=== PATIENT | male | born 1950 | race Caucasian/White ===

== ENCOUNTER 2019-04-27 09:55 | Outpatient (CLI) | payer OTHER, MEDICARE, SELFPAY ==
[2019-04-27 12:47] LABS: Calculated LDL 114 mg/dL; Cholesterol 176 mg/dL (50-200); Glucose 110 mg/dL (70-100); HDL Cholesterol 54 mg/dL (40-60); Triglyceride 44 mg/dL (30-150)
== END 2019-04-27 10:15 ==
PROVIDERS: PCP Family Medicine; Visit Provider Family Medicine
DX: Z00.00 Encounter for general adult medical examination without abnormal findings (principal); Z13.220 Encounter for screening for lipoid disorders; Z13.1 Encounter for screening for diabetes mellitus
CPT/HCPCS: 36415; 80061; 82947; 83721

== ENCOUNTER 2025-01-24 03:30 | Outpatient (CLI) | payer MEDICARE, SELFPAY ==
[2025-01-24 10:02] LABS: Hemoglobin A1C 5.8 % (<5.7)
[2025-01-25 10:04] LABS: Hepatitis C Ab w Rflx HCV PCR Negative (Negative)
== END 2025-01-24 03:31 | disposition home or self-care (01) ==
LOC: LBO 03:30
PROVIDERS: PCP Family Medicine; Visit Provider Family Medicine
DX: Z11.59 Encounter for screening for other viral diseases (principal); E11.9 Type 2 diabetes mellitus without complications
CPT/HCPCS: 36415; 86803; 83036

== ENCOUNTER 2025-07-26 03:31 | Outpatient (CLI) | payer MEDICARE, SELFPAY ==
[2025-07-26 12:38] LABS: ALT 19 U/L (16-63); AST 16 U/L (15-37); Albumin 3.8 g/dL (3.4-5.0); Alkaline Phosphatase 143 U/L (46-116); Anion Gap 6.1 mmol/L (3-11); BUN 15 mg/dL (7-18); Bilirubin, Total 0.6 mg/dL (0.2-1.0); CO2 30.9 mmol/L (21.0-32.0); Calcium 9.3 mg/dL (8.5-10.1); Calculated LDL 104 mg/dL (<100); Chloride 101 mmol/L (98-107); Cholesterol 167 mg/dL (<200); Estimated GFR 78.98 (mL/min/1.73m2); Glucose 115 mg/dL (74-106); HDL Cholesterol 53 mg/dL (>or=40); Potassium 4.3 mmol/L (3.5-5.1); Sodium 138 mmol/L (136-145); Total Protein 8.5 g/dL (6.4-8.2); Triglyceride 53 mg/dL (<150)
[2025-07-26 23:59] LABS: PSA, Diagnostic 6.8 ng/mL (<=6.5)
[2025-07-27 10:02] LABS: HBs Antibody, Quant <3.1 mIU/mL (See Note); Hepatitis B Surface Antigen Negative (Negative)
[2025-07-27 10:18] LABS: HIV-1/2 Ag & Ab Screen Negative (Negative)
== END 2025-07-26 03:32 | disposition home or self-care (01) ==
LOC: LBO 03:31
PROVIDERS: PCP Nurse Practitioner Family; Visit Provider Nurse Practitioner Family
DX: E78.5 Hyperlipidemia, unspecified (principal); R35.1 Nocturia; Z11.4 Encounter for screening for human immunodeficiency virus [HIV]; Z11.59 Encounter for screening for other viral diseases
CPT/HCPCS: 36415; 80053; 80061; 86704; 86706; 87340; 87389; 84153

== ENCOUNTER 2025-08-13 19:19 | Inpatient (IN) | payer MEDICARE, SELFPAY ==
[2025-08-13] VITALS (94 sets, daily range): BP systolic 152–165; BP diastolic 80–99; PULSE 59–85; RESP 7–24; TEMP 36.6–37; O2SAT 93–100
--- NOTE | 2025-08-13 19:45 | DI.CT_ITS ---
Exam(s) CT ABDOMEN PELVIS W EXAM: CT ABDOMEN PELVIS W CLINICAL HISTORY: epigastric pain. TECHNIQUE: Imaging Protocol: Axial computed tomography images with coronal and sagittal reformatted images were created and reviewed CONTRAST MATERIAL: Intravenous: Omnipaque-350 75cc Oral: None COMPARISON: No exams were available for comparison FINDINGS: VISUALIZED LUNG BASES: No nodules nor pleural effusions evident. ABDOMEN: There is no ascites. LIVER: There are no focal hepatic lesions evident. No dilated intrahepatic ducts. GALLBLADDER/BILIARY: There is a peripherally calcified large gallstone in the gallbladder lumen which exhibits diameter of 1 point 9 cm. Gallbladder wall does not appear obvious edematous. There is no pericholecystic fluid. CBD is not dilated. PANCREAS: There is abnormal stranding in the fat around the pancreas, most prominent in the pancreatic body and tail consistent with acute pancreatitis. Pancreatic duct is dilated in the body and tail part of the neck. There few parenchymal calcifications in the head of the pancreas. There is no obvious distinct hypodense mass the pancreatic head but there is cystic finding in the pancreatic body measuring 1.7 by 1.2 cm. SPLEEN: Spleen is not enlarged. No obvious intrasplenic lesions. Splenic and portal veins are patent. ADRENALS: There are no significant adrenal masses. KIDNEYS:There are small cortical cysts as well as parapelvic cysts in left kidney. No solid renal masses. There are no renal calculi. No hydronephrosis. No hydroureter. No obvious abnormality in the urinary bladder. ABDOMINAL AORTA: Abdominal aorta is not enlarged. Retroaortic left renal vein incidentally noted. LYMPH NODES:There is no retroperitoneal nor paraaortic adenopathy. ABDOMINAL WALL: Fat only containing midline umbilical hernia. No significant inguinal hernias. GI: There is no evidence of bowel obstruction, free air, nor abscess. PELVIS: GI: No evidence of appendicitis.There diverticuli in the sigmoid but no evidence of acute diverticulitis. LYMPH NODES: There is no intrapelvic nor inguinal adenopathy. REPRODUCTIVE: Mildly enlarged prostate. Seminal vesicles unremarkable. URINARY BLADDER: No calculi nor obvious masses evident OSSEOUS: No fractures and no significant osseous lesions. Moderate disc space narrowing at L5-S1 level. No listhesis. No pars defects. IMPRESSION: 1. There is inflammatory streaking on the pancreas consistent with acute pancreatitis, this most prominent around the body and tail of the pancreas. The pancreatic duct is dilated. 2. There is a 17 x 12 mm cystic structure in the body of the pancreas.. This is either a pancreatic cyst versus pancreatic pseudocyst versus cystic pancreatic neoplasm. Appropriate follow-up with MRI recommended. 3. Cholelithiasis. Large gallstone in the gallbladder. No evidence of obvious acute cholecystitis. The CBD is not dilated. 4. Other findings as above Preliminary [facility] report was reviewed. RADIATION DOSE DELIVERED: 462.49mGy.cm Total DLP DATA REPOSITORY: All CT scans at this facility are submitted to the National Radiology Data Registry (NRDR) Dose Index Registry (DIR) with the [employer] (A[employer]). RADIATION OPTIMIZATION: All CT scans at this facility use at least one of these dose optimization techniques: automated exposure control; mA and/or kV adjustment per patient size (includes targeted exams where dose is matched to clinical indication); or iterative reconstruction.
--- NOTE | 2025-08-13 19:45 | RT.EKG_ITS ---
APPROVED REPORT Exam: Resting ECG Reason for Exam: chest pain Patient Location: E HR:78 bpm ECG Measurements Heart Rate 78 AXIS GA 170 P 37 QRSd 96 QRS 23 QT 379 T -3 QTc 430 Conclusion Sinus rhythm, rate 78 No interval abnormalities No STEMI No priors available for comparison
[2025-08-13] MEDS: ACETAMINOPHEN 500 MG/50 ML BAG 200 MG IVPB (20:23)
[2025-08-13 20:28] LABS: Abs Immature Grans 0.03 10^3/uL (0.0-0.06); HCT 41.2 % (40.0-50.0); HGB 13.9 g/dL (13.5-17.5); Immature Grans % 0.3 %; MCH 29.7 pg (27.0-33.0); MCHC 33.7 % (32.0-36.0); MCV 88 fL (80-95); MPV 9.0 fL (8.0-11.0); Platelet Count 235 10^3/uL (130-400); RBC 4.68 10^6/uL (4.36-5.78); RDW 13.2 % (11.8-14.1); RDW-SD 43.1 fL; WBC 9.84 10^3/uL (4.4-10.8)
[2025-08-13] MEDS: Normal Saline - Diluent 50 ML VIAL IJ (20:30)
[2025-08-13] MEDS: Normal Saline Flush 10 ML SYR IVP (20:30)
[2025-08-13] MEDS: Omnipaque 350 MG/ML 100 ML BTL IJ (20:30)
[2025-08-13 20:49] LABS: ALT 19 U/L (16-63); AST 15 U/L (15-37); Albumin 3.2 g/dL (3.4-5.0); Alkaline Phosphatase 124 U/L (46-116); Anion Gap 8.6 mmol/L (3-11); BUN 13 mg/dL (7-18); Bilirubin, Total 0.4 mg/dL (0.2-1.0); CO2 28.4 mmol/L (21.0-32.0); Calcium 8.4 mg/dL (8.5-10.1); Chloride 103 mmol/L (98-107); Glucose 125 mg/dL (74-106); Potassium 3.8 mmol/L (3.5-5.1); Sodium 140 mmol/L (136-145); Total Protein 7.5 g/dL (6.4-8.2); Troponin I 31 ng/L (<or=76)
[2025-08-13 21:04] LABS: Lipase 987 U/L (<78)
--- NOTE | 2025-08-13 21:21 | DI.VRAD_ITS ---
PROCEDURE INFORMATION: Exam: CT Abdomen And Pelvis With Contrast Exam date and time: 08/13/2025 8:45 PM Age: 75 years old Clinical indication: Abdominal pain; Localized; Epigastric pain TECHNIQUE: Imaging protocol: Computed tomography of the abdomen and pelvis with contrast. Radiation optimization: All CT scans at this facility use at least one of these dose optimization techniques: automated exposure control; mA and/or kV adjustment per patient size (includes targeted exams where dose is matched to clinical indication); or iterative reconstruction. Contrast material: OMNIPAQUE 350; Contrast volume: 75 ml; Contrast route: INTRAVENOUS (IV); COMPARISON: No relevant prior studies available. FINDINGS: Liver: Normal. No mass. Gallbladder and biliary ducts: Gallstone in the gallbladder Pancreas: Mild inflammatory changes around the pancreas consistent with mild pancreatitis especially seen around the body and tail of the pancreas Dilatation of the pancreatic duct 18 x 14 mm cystic structure in the body of the pancreas (series 8, image 34.). Spleen: Normal. No splenomegaly. Adrenal glands: Normal. No mass. Kidneys and ureters: There is no evidence of renal or ureteral calcifications. Subcentimeter low attenuation areas in both kidneys are too small for characterization. Stomach and bowel: Unremarkable. No obstruction. No mucosal thickening. Appendix: No evidence of appendicitis. Intraperitoneal space: Unremarkable. No free air. No significant fluid collection. Vasculature: Unremarkable. No abdominal aortic aneurysm. Lymph nodes: Unremarkable. No enlarged lymph nodes. Urinary bladder: Unremarkable as visualized. Reproductive: Unremarkable as visualized. Bones/joints: Unremarkable. No acute fracture. Soft tissues: Unremarkable. IMPRESSION: Mild inflammatory changes around the pancreas consistent with mild pancreatitis especially seen around the body and tail of the pancreas 18 x 14 mm cystic structure in the body of the pancreas (series 8, image 34.). Findings consistent with pancreatic cyst, pancreatic pseudocyst, pancreatic cystic neoplasm Dictated and Authenticated by: Pako Pedroza MD. Orderin Magda Potter MD
[2025-08-13] MEDS: Normal Saline 1,000 ML 1000 ML IV (21:28)
[2025-08-13 21:48] LABS: Troponin I 30 ng/L (<or=76)
--- NOTE | 2025-08-13 21:52 | HPE_ITS ---
Date of service: 08/13/25 Time of Service: 21:52 Assessment and Plan Assessment and plan (1) Pancreatitis, acute: Start date: 08/13/25 Status: Acute Assessment and plan: This is a generally healthy 75-year-old gentleman who presents with a more severe sharepoint net developer episode of abdominal pain in his epigastrium that he has been having in the last year. This been occurring intermittently and usually after his larger evening meal and in the sharepoint net developer. He appears to have acute pancreatitis and he also has cholelithiasis which may be the most likely cause of his acute episode. He does not have an obstructing stone at this time. He also had an incidental finding of a large pancreatic cyst which needs further evaluation. [facility] did review the case and imaging and advised nonemergent evaluation with outpatient follow-up if his pancreatitis is improving spontaneously. Most likely this is transient gallstone pancreatitis. Patient is a full code. (2) Pancreatic cyst: Start date: 08/13/25 Status: Acute Assessment and plan: Rather large appears benign. Patient does not have any signs or indications of acute laboratory workup at this. He is not an alcohol drinker. He does have his larger fatty meal in the evening which might be why he has been having symptomatic cholelithiasis over this last year. MRI may be followed up as an outpatient if patient is stabilizing and does not require urgent MRI/MRCP to evaluate this event. He has had no weight loss or chronic pain in this area to indicate a symptomatic pancreatic mass. This does not appear to be the cause of his acute pancreatitis with sudden onset and resolution. (3) Cholelithiasis: Start date: 08/13/25 Status: Acute Assessment and plan: Patient did not know that he had gallstones but his father did have gallstones and had to have a gallbladder removed. Surgery has been consulted to review the patient's case in the morning this could be taken care of as an outpatient. Patient appears to have been symptomatic with gallstones over the last year. This is his worst episode. History of Present Illness History of Present Illness Chief Complaint: Awakened at 3 AM the day of presentation with abdominal pain. Narrative: This is a 75-year-old male patient who is generally healthy who was awakened at 3 AM the day of presentation with abdominal pain. His abdominal discomfort was in his upper abdomen in the epigastric area and nonradiating. He had no significant nausea or vomiting. Pain was severe and unrelenting prompting ED evaluation. He had similar but less severe episodes over the last year intermittently and usually early in the morning. Patient's largest meal is in the evening. He is generally healthy and on minimal medication for his age. ED evaluation did reveal epigastric discomfort but no significant guarding or rebound and CT of the abdomen and pelvis was positive for inflammation of the pancreas and a large pancreatic cyst which may not be part of his presentation according to [facility] been consulted by the ED provider. He did also have gallstones but no dilatation of the common bile duct or biliary tree. Lab did reveal an elevated lipase just below 1000, slightly elevated alkaline phosphatase but no other elevation in the liver. At the time I saw the patient he was feeling better and he did not require the morphine IV ordered during the late night and sharepoint net developer. Still had no nausea or vomiting and no radiation of his pain. As stated he had had similar episode but less severe and usually in the sharepoint net developer which he thought was increased gas. Patient will be observed with bowel rest and IV hydration as well as ultrasound the gallbladder in the morning with surgical consultation in place. MRI/MRCP will be performed if lipase/LFTs elevating, but clinically he is improving. Further evaluation of his pancreatic cyst can be done with specialty care as an outpatient. Patient is a full code. Review of Systems Narrative: 13 point review of systems otherwise unrevealing or stable. [facility] All Active Problems (Updated 08/13/25 @ 22:01 by Kurt Esparza) Cholelithiasis (Acute) Pancreatic cyst (Acute) Pancreatitis, acute (Acute) New patient screening performed (Acute) Nocturia (Acute) Hyperlipidemia (Acute) Prediabetes (Acute) Vaccine refused by parent (Acute) Varicose veins of lower extremity (Chronic) stable Chronic ankle pain (Acute 02/15/18) Medical History Exposure to second hand smoke Family History Mother , 89 Essential hypertension Stroke Cancer Father , 94 Heart disease Stroke Sister No problems noted. Sister No problems noted. Maternal Grandfather , 85 Pancreatic cancer Paternal Grandfather , 65 Heart disease Stroke Maternal Grandmother , 98 Stroke Heart disease Paternal Grandmother , 45 Cancer Maternal Uncle Prostate cancer Maternal Uncle Prostate cancer Son No problems noted. Son No problems noted. Social History Smoking/Tobacco Use Status: Former Tobacco Use Second Hand Exposure: Yes Smoking risk assessment performed?: Yes Alcohol Intake: current Alcohol Intake frequency: a few times a month Alcohol type: beer Drug use: Never Substance use type: does not use Counseling given: No Adopted: No Caregiver/Support person: No Foster care: No Household members: spouse Housing: house Communication Needs: None Education Level: college Do you need help understanding health information?: Rarely current occupation: Retired Pets and animals: Yes Pets and animals: cat(s), dog(s), horse(s) and farm animals Sexually active: Yes Do you think of yourself as: straight/heterosexual Current gender identity: male What is your relationship status?: How often do you talk on the phone with friends or family?: three or more times per week How often do you get together with friends or relatives?: three or more times per week How often do you attend congregation or rastafari services?: 1-3 times per year Do you belong to any clubs or organized social groups?: no Panel score (0-1 are the most socially isolated patients): 2 What type of physical activity do you participate in: other Details: Building a house Duration: > 90 minutes/day Frequency: daily Ev/Samaritan: Yarsani Special ev needs: No Agree to transfusion: Yes Seatbelt use: always Drive intox or ride w/intox ambulance driver: No Working smoke detector in home: Yes Carbon monox detector in home: Yes Firearms in home: Yes Firearms unloaded and locked: Yes Do you feel safe at home: Yes Do you feel safe in your relationship?: Yes Meds Allergies and Home Medications Allergies Allergy/AdvReac Type Severity Reaction Status Date / Time codeine AdvReac Intermediate Dizziness/L Verified 08/13/25 19:30 ightheade Home Medications Medication Instructions Recorded Confirmed Type Unknown [No Known Home Meds] 07/21/23 1 10/13/24 History Exam Narrative Exam Narrative: General: Patient appears younger than stated age, alert and oriented x 3 and in no acute distress. HEENT: Normocephalic, long and kempt beltran, alert and oriented x 3 and in no acute distress. Slightly flattened affect. Neck: Supple without JVD. Back: Normal posture without CVA tenderness. Lungs: Clear to auscultation and percussion with no focalizing rales or rhonchi. No expiratory wheeze. Normal aeration with vesicular breath sounds. Heart: Regular rate and rhythm with no murmurs appreciated. Abdomen: Moderately obese, slightly protuberant, soft to palpation with no guarding or rebound but discomfort with deep palpation over the epigastrium. Bowel sounds positive in all quadrants. No palpable hepatosplenomegaly or So sign. Genitalia/rectal: Exam deferred. Extremities: Without clubbing, cyanosis or grossly pitting edema. Skin with chronic changes over legs with loss of hair slight atrophy. Good capillary refill. Skin: Slight skin changes over lower extremity, otherwise normal color, warm and dry. Neuro: Cranial nerves II through XII gross intact, no focalized motor deficits. No tremor. Psych: Normal affect and mood. No abnormal thought processes. Remote and recent memory intact. Results Imaging Imaging Studies: Exam: CT Abdomen And Pelvis With Contrast Exam date and time: 08/13/2025 8:45 PM Age: 75 years old Clinical indication: Abdominal pain; Localized; Epigastric pain COMPARISON: No relevant prior studies available. FINDINGS: Liver: Normal. No mass. Gallbladder and biliary ducts: Gallstone in the gallbladder Pancreas: Mild inflammatory changes around the pancreas consistent with mild pancreatitis especially seen around the body and tail of the pancreas Dilatation of the pancreatic duct 18 x 14 mm cystic structure in the body of the pancreas (series 8, image 34.). Spleen: Normal. No splenomegaly. Adrenal glands: Normal. No mass. Kidneys and ureters: There is no evidence of renal or ureteral calcifications. Subcentimeter low attenuation areas in both kidneys are too small for characterization. Stomach and bowel: Unremarkable. No obstruction. No mucosal thickening. Appendix: No evidence of appendicitis. Intraperitoneal space: Unremarkable. No free air. No significant fluid collection. Vasculature: Unremarkable. No abdominal aortic aneurysm. Lymph nodes: Unremarkable. No enlarged lymph nodes. Urinary bladder: Unremarkable as visualized. Reproductive: Unremarkable as visualized. Bones/joints: Unremarkable. No acute fracture. Soft tissues: Unremarkable. IMPRESSION: Mild inflammatory changes around the pancreas consistent with mild pancreatitis especially seen around the body and tail of the pancreas 18 x 14 mm cystic structure in the body of the pancreas (series 8, image 34.). Findings consistent with pancreatic cyst, pancreatic pseudocyst, pancreatic cystic neoplasm Labs 08/13/25 20:22 08/13/25 20:22 Labs: Laboratory Results - last 24 hr 08/13/25 08/13/25 20:22 21:20 WBC 9.84 RBC 4.68 Hgb 13.9 Hct 41.2 MCV 88 MCH 29.7 MCHC 33.7 RDW 13.2 Plt Count 235 MPV 9.0 Immature Gran % 0.3 Neutrophils % 74.5 Lymphocytes % 14.5 Monocytes % 8.5 Eosinophils % 1.8 Basophils % 0.4 Nucleated RBC % 0.0 Absolute Neutrophils 7.32 H Absolute Lymphocytes 1.43 Absolute Monocytes 0.84 H Absolute Eosinophils 0.18 Absolute Basophils 0.04 VBG Lactate 0.8 Sodium 140 Potassium 3.8 Chloride 103 Carbon Dioxide 28.4 Anion Gap 8.6 BUN 13 Creatinine 1.0 Est GFR (CKD-EPI 2020) 78.98 Glucose 125 H Calcium 8.4 L Total Bilirubin 0.4 AST 15 ALT 19 Alkaline Phosphatase 124 H Troponin I 31 30 Total Protein 7.5 Albumin 3.2 L Lipase 987 H Last Vital Signs Temp 36.9 C 08/13/25 19:31 Pulse 66 08/13/25 21:33 Resp 10 L 08/13/25 21:33 BP 165/99 H 08/13/25 21:30 Pulse Ox 98 08/13/25 21:33 PAWSS Have you Been Recently Intoxicated or Drunk Within the Last 30 days?: No Have you Ever Experienced Previous Episodes of Alcohol Withdrawal?: No Have you ever Experienced Withdrawal Seizures?: No Have you ever Experienced Delirium Tremens(DT)s?: No Have you ever undergone Alcohol Rehabilitation Treatment (i.e, inpt ot outpatient treatment programs)?: No Have you ever Experienced Blackouts?: No Have you ever Combined Alcohol with other Downers within the last 90 days?: No Have you ever Combined Alcohol with any other Substance of Abuse during the last 90 days?: No Positive Blood Alcohol level on Presentation? [PCS.BAL]: No Evidence of Increased Autonomic Activity (i.e. HR>120, tremor, sweating, agitation, nausea)?: No Result: 0 Time Spent Time spent with Patient: >75 minutes Time was spent: preparing to see the patient(eg.review tests), obtaining and/or reviewing separately [facility], ordering medications,tests, procedures, referring, communicating with other health health care sanitary technician, indepentently interpreting results, counseling the patient and care coordination
[2025-08-13] MEDS: MORPHine 4 MG/ML SYR IVP (22:02)
[2025-08-13 22:06] LABS: Glucose Negative (Negative)
--- NOTE | 2025-08-13 22:29 | ED.GENADUL_ITS ---
Discharge Plan Discharge Details Chief Complaint: Abd Prob Primary Care Provider: Bharat Starks ED Provider: Abbey Man Home Meds and New Rx's Prescriptions: No Action No Known Home Meds HPI General Date/Time Provider Initiated Documentation: 08/13/25 19:24 . HPI Narrative: This 75-year-old gentleman presents with epigastric pain which awoke him from sleep at 3 AM. He denies history of similar symptoms in the past. He states the pain radiates through to his back. Denies any chest pain or shortness of breath associated or history of similar symptoms in the past. He consumes alcohol maybe once or twice a month he denies any medication or supplement use. He states the pain feels like an ache and initially thought it was gas but has taken Tums and simethicone without improvement of his symptoms. He states the pain has been persistent since onset. Denies any urinary complaints nausea, vomiting. Related Data Home Medications Medication Instructions Recorded Confirmed Unknown [No Known Home Meds] 07/21/23 1 10/13/24 Allergies Allergy/AdvReac Type Severity Reaction Status Date / Time codeine AdvReac Intermediate Dizziness/L Verified 08/13/25 19:30 ightheade General Stated Complaint: Abd Prob HARLAN: 3 Exam Narrative Exam Narrative: Patient with tenderness in the epigastrium, no rebound or guarding, alert and oriented and answering questions appropriately distal pulses intact all 4 extremities no abdominal bruit or pulsatile mass no CVA tenderness Course Vital Signs Vital signs: Vital Signs Temperature 36.9 C 08/13/25 19:21 Pulse 79 08/13/25 19:21 Respiratory Rate 18 08/13/25 19:21 Blood Pressure 154/80 H 08/13/25 19:21 Pulse Oximetry 96 08/13/25 19:21 Temperature 36.9 C 08/13/25 19:31 Temperature Source Oral 08/13/25 19:31 Pulse 66 08/13/25 21:33 Respiratory Rate 10 L 08/13/25 21:33 Blood Pressure 165/99 H 08/13/25 21:30 Blood Pressure Mean 123 08/13/25 21:30 Blood Pressure Position Sitting 08/13/25 19:31 Pulse Oximetry 98 08/13/25 21:33 Oxygen Delivery Method Room Air 08/13/25 19:31 Oxygen Flow Rate 0 08/13/25 19:21 Pain Level 8 08/13/25 19:21 Lab/Test Results Lab/Test Results: Laboratory Tests Range/Units 08/13/25 08/13/25 08/13/25 20:22 21:20 21:52 WBC (4.4-10.8) 10^3/uL 9.84 RBC (4.36-5.78) 10^6/uL 4.68 Hgb (13.5-17.5) g/dL 13.9 Hct (40.0-50.0) % 41.2 MCV (80-95) fL 88 MCH (27.0-33.0) pg 29.7 MCHC (32.0-36.0) % 33.7 RDW (11.8-14.1) % 13.2 Plt Count (130-400) 10^3/uL 235 MPV (8.0-11.0) fL 9.0 Immature Gran % % 0.3 Neutrophils % % 74.5 Lymphocytes % % 14.5 Monocytes % % 8.5 Eosinophils % % 1.8 Basophils % % 0.4 Nucleated RBC % (0.0-0.3) % 0.0 Absolute Neutrophils (1.2-6.7) 10^3/uL 7.32 H Absolute Lymphocytes (1.2-3.4) 10^3/uL 1.43 Absolute Monocytes (0.1-0.8) 10^3/uL 0.84 H Absolute Eosinophils (0.0-0.7) 10^3/uL 0.18 Absolute Basophils (0.0-0.2) 10^3/uL 0.04 VBG Lactate (<or=2.0) mmol/L 0.8 Sodium (136-145) mmol/L 140 Potassium (3.5-5.1) mmol/L 3.8 Chloride (98-107) mmol/L 103 Carbon Dioxide (21.0-32.0) mmol/L 28.4 Anion Gap (3-11) mmol/L 8.6 BUN (7-18) mg/dL 13 Creatinine (0.70-1.30) mg/dL 1.0 Est GFR (CKD-EPI 2020) (mL/min/1.73m2) 78.98 Glucose (74-106) mg/dL 125 H Calcium (8.5-10.1) mg/dL 8.4 L Total Bilirubin (0.2-1.0) mg/dL 0.4 AST (15-37) U/L 15 ALT (16-63) U/L 19 Alkaline Phosphatase (46-116) U/L 124 H Troponin I (<or=76) ng/L 31 30 Total Protein (6.4-8.2) g/dL 7.5 Albumin (3.4-5.0) g/dL 3.2 L Lipase (<78) U/L 987 H Urine Color (Yellow) Yellow Urine Clarity (Clear) Clear Urine pH (5-8) 7.0 Ur Specific [place] (1.005-1.025) 1.010 Urine Protein (Neg-Trace) mg/dL Negative Urine Ketones (Negative) mg/dL Negative Urine Blood (Negative) Negative Urine Nitrite (Negative) Negative Urine Bilirubin (Negative) Negative Urine Urobilinogen (Up to 0.2) mg/dL 0.2 Ur Leukocyte Esterase (Negative) Negative Urine Glucose (Negative) mg/dL Negative Medical Decision Making Results: Lactate 0.8 CBC within normal limits chemistry reassuring LFTs within normal limits, T. bili within normal limits troponins flat at 30, lipase of 987. CT with pancreatitis and cyst per radiologist interpretation my review Assessment and plan: Patient with epigastric pain with evidence of pancreatitis and cyst on CT. No evidence of obstructive pathology per radiologist interpretation of my review. Suspect acute pancreatitis although no source is idiopathic at this time. Will need additional imaging of cyst. I spoke with the hospitalist Dr. Bosch and he asked that I call gastroenterology for further evaluation. Dr Ceasar Aponte who recommends MRI outpatient or inpatient to further evaluate cyst on pancreas and supportive care. Fluids and morphine are ordered for patient. 2 mg of IV morphine and 1 L of NS. Agreeable to admission at this time. Quality:SDOH Health Related Social Needs: Health related social needs details none PFSH All Active Problems (Updated 08/13/25 @ 22:01 by Kurt Esparza) Cholelithiasis (Acute) Pancreatic cyst (Acute) Pancreatitis, acute (Acute) New patient screening performed (Acute) Nocturia (Acute) Hyperlipidemia (Acute) Prediabetes (Acute) Vaccine refused by parent (Acute) Varicose veins of lower extremity (Chronic) stable Chronic ankle pain (Acute 02/15/18) Medical History Exposure to second hand smoke Family History Mother , 89 Essential hypertension Stroke Cancer Father , 94 Heart disease Stroke Sister No problems noted. Sister No problems noted. Maternal Grandfather , 85 Pancreatic cancer Paternal Grandfather , 65 Heart disease Stroke Maternal Grandmother , 98 Stroke Heart disease Paternal Grandmother , 45 Cancer Maternal Uncle Prostate cancer Maternal Uncle Prostate cancer Son No problems noted. Son No problems noted. Social History Smoking/Tobacco Use Status: Former Tobacco Use Second Hand Exposure: Yes Smoking risk assessment performed?: Yes Alcohol Intake: current Alcohol Intake frequency: a few times a month Alcohol type: beer Drug use: Never Substance use type: does not use Counseling given: No Adopted: No Caregiver/Support person: No Foster care: No Household members: spouse Housing: house Communication Needs: None Education Level: college Do you need help understanding health information?: Rarely current occupation: Retired Pets and animals: Yes Pets and animals: cat(s), dog(s), horse(s) and farm animals Sexually active: Yes Do you think of yourself as: straight/heterosexual Current gender identity: male What is your relationship status?: How often do you talk on the phone with friends or family?: three or more times per week How often do you get together with friends or relatives?: three or more times per week How often do you attend synagogue or mandaeism services?: 1-3 times per year Do you belong to any clubs or organized social groups?: no Panel score (0-1 are the most socially isolated patients): 2 What type of physical activity do you participate in: other Details: Building a house Duration: > 90 minutes/day Frequency: daily Ev/Catholic: Restorationist Special ev needs: No Agree to transfusion: Yes Seatbelt use: always 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 Working smoke detector in home: Yes Carbon monox detector in home: Yes Firearms in home: Yes Firearms unloaded and locked: Yes Do you feel safe at home: Yes Do you feel safe in your relationship?: Yes PAWSS Have you Been Recently Intoxicated or Drunk Within the Last 30 days?: No Have you Ever Experienced Previous Episodes of Alcohol Withdrawal?: No Have you ever Experienced Withdrawal Seizures?: No Have you ever Experienced Delirium Tremens(DT)s?: No Have you ever undergone Alcohol Rehabilitation Treatment (i.e, inpt ot outpatient treatment programs)?: No Have you ever Experienced Blackouts?: No Have you ever Combined Alcohol with other Downers within the last 90 days?: No Have you ever Combined Alcohol with any other Substance of Abuse during the last 90 days?: No Positive Blood Alcohol level on Presentation? [PCS.BAL]: No Evidence of Increased Autonomic Activity (i.e. HR>120, tremor, sweating, agitation, nausea)?: No Result: 0
[2025-08-13 22:57] LABS: COVID-19 PCR Negative (Negative); RSV PCR Negative (Negative)
--- NOTE | 2025-08-13 23:30 | W.PC.ACHO ---
Registration Status: REG ER Primary Language: Preferred Language: Kyrgyz ED Information & Data Chief Complaint Abd Prob 08/13/25 22:31 Triage Note patient has been having 08/13/25 19:21 stomach pain since 3am this morning. State he has been having normal stool. Patient state he feels as if its gas pain and he has been using otc medications all day to help with symptoms but it has not been working. Medical / Surgical History Exposure to second hand smoke Most Recent Vital Signs Temperature 37 C 08/13/25 22:48 Temperature Source Oral 08/13/25 19:31 Pulse 63 08/13/25 22:52 Respiratory Rate 11 L 08/13/25 22:52 Blood Pressure 162/88 H 08/13/25 22:48 Blood Pressure Mean 109 08/13/25 22:28 Blood Pressure Position Sitting 08/13/25 19:31 Pulse Oximetry 98 08/13/25 22:52 Oxygen Delivery Method Room Air 08/13/25 19:31 Oxygen Flow Rate 0 08/13/25 19:21 Pain Level 0 08/13/25 22:48 Allergies codeine Adverse Reaction (Intermediate, Verified 08/13/25 19:30) Dizziness/Lightheade Active Medications Generic Name Dose Route Start Last Admin Trade Name Freq PRN Reason Stop Dose Admin Iohexol 100 ml 08/13/25 20:00 08/13/25 20:30 Omnipaque 350 Mg/Ml 100 Ml Btl IJ 09/12/25 23:59 75 ml DIRECTED BENJY Administration Sodium Chloride 50 ml 08/13/25 20:00 08/13/25 20:30 Normal Saline - Diluent 50 Ml Vial IJ 50 ml DIRECTED BENJY Administration Sodium Chloride 0 ml 08/13/25 20:00 08/13/25 20:30 Normal Saline Flush 10 Ml Syr IVP 10 ml PRN PRN Administration IV IV Catheter Type [Right Saline Lock Antecubital] IV Catheter Gauge [Right 18 Antecubital] Diagnostics 08/13/25 08/13/25 08/13/25 Range/Units 22:15 21:52 21:20 WBC (4.4-10.8) 10^3/uL RBC (4.36-5.78) 10^6/uL Hgb (13.5-17.5) g/dL Hct (40.0-50.0) % MCV (80-95) fL MCH (27.0-33.0) pg MCHC (32.0-36.0) % RDW (11.8-14.1) % Plt Count (130-400) 10^3/uL MPV (8.0-11.0) fL Immature Gran % % Neutrophils % % Lymphocytes % % Monocytes % % Eosinophils % % Basophils % % Nucleated RBC % (0.0-0.3) % Absolute Neutrophils (1.2-6.7) 10^3/uL Absolute Lymphocytes (1.2-3.4) 10^3/uL Absolute Monocytes (0.1-0.8) 10^3/uL Absolute Eosinophils (0.0-0.7) 10^3/uL Absolute Basophils (0.0-0.2) 10^3/uL VBG Lactate (<or=2.0) mmol/L Sodium (136-145) mmol/L Potassium (3.5-5.1) mmol/L Chloride (98-107) mmol/L Carbon Dioxide (21.0-32.0) mmol/L Anion Gap (3-11) mmol/L BUN (7-18) mg/dL Creatinine (0.70-1.30) mg/dL Est GFR (CKD-EPI 2020) (mL/min/1.73m2) Glucose (74-106) mg/dL Calcium (8.5-10.1) mg/dL Total Bilirubin (0.2-1.0) mg/dL AST (15-37) U/L ALT (16-63) U/L Alkaline Phosphatase (46-116) U/L Troponin I 30 (<or=76) ng/L Total Protein (6.4-8.2) g/dL Albumin (3.4-5.0) g/dL Lipase (<78) U/L Urine Color Yellow (Yellow) Urine Clarity Clear (Clear) Urine pH 7.0 (5-8) Ur Specific [place] 1.010 (1.005-1.025) Urine Protein Negative (Neg-Trace) mg/dL Urine Ketones Negative (Negative) mg/dL Urine Blood Negative (Negative) Urine Nitrite Negative (Negative) Urine Bilirubin Negative (Negative) Urine Urobilinogen 0.2 (Up to 0.2) mg/dL Ur Leukocyte Esterase Negative (Negative) Urine Glucose Negative (Negative) mg/dL COVID-19 Source Pending SARS-CoV-2 (PCR) Pending Influenza Type A (PCR) Pending Influenza Type B (PCR) Pending RSV (PCR) Pending 08/13/25 Range/Units 20:22 WBC 9.84 (4.4-10.8) 10^3/uL RBC 4.68 (4.36-5.78) 10^6/uL Hgb 13.9 (13.5-17.5) g/dL Hct 41.2 (40.0-50.0) % MCV 88 (80-95) fL MCH 29.7 (27.0-33.0) pg MCHC 33.7 (32.0-36.0) % RDW 13.2 (11.8-14.1) % Plt Count 235 (130-400) 10^3/uL MPV 9.0 (8.0-11.0) fL Immature Gran % 0.3 % Neutrophils % 74.5 % Lymphocytes % 14.5 % Monocytes % 8.5 % Eosinophils % 1.8 % Basophils % 0.4 % Nucleated RBC % 0.0 (0.0-0.3) % Absolute Neutrophils 7.32 H (1.2-6.7) 10^3/uL Absolute Lymphocytes 1.43 (1.2-3.4) 10^3/uL Absolute Monocytes 0.84 H (0.1-0.8) 10^3/uL Absolute Eosinophils 0.18 (0.0-0.7) 10^3/uL Absolute Basophils 0.04 (0.0-0.2) 10^3/uL VBG Lactate 0.8 (<or=2.0) mmol/L Sodium 140 (136-145) mmol/L Potassium 3.8 (3.5-5.1) mmol/L Chloride 103 (98-107) mmol/L Carbon Dioxide 28.4 (21.0-32.0) mmol/L Anion Gap 8.6 (3-11) mmol/L BUN 13 (7-18) mg/dL Creatinine 1.0 (0.70-1.30) mg/dL Est GFR (CKD-EPI 2020) 78.98 (mL/min/1.73m2) Glucose 125 H (74-106) mg/dL Calcium 8.4 L (8.5-10.1) mg/dL Total Bilirubin 0.4 (0.2-1.0) mg/dL AST 15 (15-37) U/L ALT 19 (16-63) U/L Alkaline Phosphatase 124 H (46-116) U/L Troponin I 31 (<or=76) ng/L Total Protein 7.5 (6.4-8.2) g/dL Albumin 3.2 L (3.4-5.0) g/dL Lipase 987 H (<78) U/L Urine Color (Yellow) Urine Clarity (Clear) Urine pH (5-8) Ur Specific [place] (1.005-1.025) Urine Protein (Neg-Trace) mg/dL Urine Ketones (Negative) mg/dL Urine Blood (Negative) Urine Nitrite (Negative) Urine Bilirubin (Negative) Urine Urobilinogen (Up to 0.2) mg/dL Ur Leukocyte Esterase (Negative) Urine Glucose (Negative) mg/dL COVID-19 Source SARS-CoV-2 (PCR) Influenza Type A (PCR) Influenza Type B (PCR) RSV (PCR) Intake and Output - 24 Hour Total 08/13/25 19:19 thru 08/13/25 22:04 Intake Total 1050 Balance 1050 Weight 83.915 kg Intake: IV 1050 Falls Risk Assessment History of Falls No History 08/13/25 19:56 Contributing Factors No Factors 08/13/25 19:56 Ambulatory Aids Independent 08/13/25 19:56 Tubes/Lines None 08/13/25 19:56 Gait Evaluation No gait disturbance 08/13/25 19:56 Cognition No cognitive impairment 08/13/25 19:56 Fall Total Score 0 08/13/25 19:56 Level of Risk Standard/Low Risk 08/13/25 19:56 Problems (Last Reviewed 08/13/25 @ 21:58 by Kurt Esparza) Cholelithiasis (Acute) Pancreatic cyst (Acute) Pancreatitis, acute (Acute) Attestation Statement: By documenting the first initial, last name, and credentials of the reporting nurse below, both parties acknowledge that all relevant information regarding the patient handoff has been communicated, and that all questions have been addressed to ensure continuity and safety of care. Additional Patient Information/Comments: @ 2300, pt received per ed bed accompanied by haylee CRAWFORD RN,pt nambulated from ed bed to MS bed without device.Denies any sob,dizziness,nv,lightheadedness but with 3/10 mild pain complaint to his upper abdomen.With PIV on his rightarm 18 gauge.Situated pt into comfort.needs attended. Report Received From: HAYLEE CRAWFORDRN @ around [id number]
[2025-08-13] MEDS: Normal Saline 1,000 ML 125 ML IV (23:38)
[2025-08-14 00:18] LABS: INR 1.1 (0.9-1.1); Prothrombin Time 10.6 sec (9.1-11.1)
[2025-08-14 03:20] VITALS: BP 129/76; PULSE 62; RESP 18; TEMP 37.1; O2SAT 98
[2025-08-14] MEDS: Acetaminophen 325 MG TAB 650 MG PO (03:25)
--- NOTE | 2025-08-14 04:12 | SCONE_ITS ---
Date of service: 08/14/25 Time of Service: 04:12 Assessment and Plan Assessment and plan (1) Pancreatitis, acute: Status: Acute Assessment and plan: The history, exam, labs and imaging are all certainly consistent with acute pancreatitis. And the presence of the gallstones seen on the CT scan suggest that as the primary source of the pancreatitis. Although the cystic lesion seen on the CT scan is also suspicious. For now, I would resuscitate with IVF and repeat the liver function tests and lipase. If the LFT remain normal, then retained common bile duct stone is less likely, and we can plan for semi- elective cholecystectomy to reduce the likelihood of recurrent pancreatitis. I generally recommend that patient be pain free from the original pancreatitis with normalizing lipase. If the biochemistries don't improve today then MRCP to rule out ongoing choledocolithiasis would be useful prior to cholecystectomy. History of Present Illness History of Present Illness Chief Complaint: Abdominal pain Narrative: Konrad is 75 years old. He came to the emergency department last night after acute onset of abdominal pain around 3 AM of the same day. It was sharp, stabbing, and radiated from just above his umbilicus down through his back. In retrospect, he may have had a little bit of loss of appetite over the day or 2 preceding this, but otherwise was feeling himself. He denies any nausea vomiting change in his bowel habits. In the emergency department, his lipase was elevated above 900, and he underwent a CT scan of the abdomen and pelvis that was consistent with acute pancreatitis. There was also some evidence of a pancreatic cyst or pseudocyst. He was also found to have cholelithiasis. He has never had any surgery in his abdomen before. He is on no new medications. He has had no significant exposure to alcohol or previous episodes of pancreatitis. Review of Systems Constitutional Constitutional: Denies fever(s) and Reports poor appetite Eyes Eyes: Reports system reviewed and no additional complaints, except as documented ENT Ears, Nose, Mouth, and Throat: Reports system reviewed and no additional complaints, except as documented Cardiovascular Cardiovascular: Denies chest pain and Denies dyspnea Respiratory Respiratory: Denies chest congestion, Denies cough and Denies dyspnea Gastrointestinal Gastrointestinal: Reports abdominal pain, Denies bloating, Denies change in bowel habits, Denies nausea and Denies vomiting Genitourinary Genitourinary: Reports system reviewed and no additional complaints, except as documented Musculoskeletal Musculoskeletal: Reports system reviewed and no additional complaints, except as documented Hematologic/Lymphatic Hematologic/Lymphatic: Denies easy bleeding and Denies easy bruising PFSH All Active Problems (Updated 08/13/25 @ 22:01 by Kurt Esparza) Cholelithiasis (Acute) Pancreatic cyst (Acute) Pancreatitis, acute (Acute) New patient screening performed (Acute) Nocturia (Acute) Hyperlipidemia (Acute) Prediabetes (Acute) Vaccine refused by parent (Acute) Varicose veins of lower extremity (Chronic) stable Chronic ankle pain (Acute 02/15/18) Medical History Exposure to second hand smoke Family History Mother , 89 Essential hypertension Stroke Cancer Father , 94 Heart disease Stroke Sister No problems noted. Sister No problems noted. Maternal Grandfather , 85 Pancreatic cancer Paternal Grandfather , 65 Heart disease Stroke Maternal Grandmother , 98 Stroke Heart disease Paternal Grandmother , 45 Cancer Maternal Uncle Prostate cancer Maternal Uncle Prostate cancer Son No problems noted. Son No problems noted. Social History Smoking/Tobacco Use Status: Former Tobacco Use Second Hand Exposure: Yes Smoking risk assessment performed?: Yes Alcohol Intake: current Alcohol Intake frequency: a few times a month Alcohol type: beer Drug use: Never Substance use type: does not use Counseling given: No Adopted: No Caregiver/Support person: No Foster care: No Household members: spouse Housing: house Communication Needs: None Education Level: college Do you need help understanding health information?: Rarely current occupation: Retired Pets and animals: Yes Pets and animals: cat(s), dog(s), horse(s) and farm animals Sexually active: Yes Do you think of yourself as: straight/heterosexual Current gender identity: male What is your relationship status?: How often do you talk on the phone with friends or family?: three or more times per week How often do you get together with friends or relatives?: three or more times per week How often do you attend caodaism or zoroastrianism services?: 1-3 times per year Do you belong to any clubs or organized social groups?: no Panel score (0-1 are the most socially isolated patients): 2 What type of physical activity do you participate in: other Details: Building a house Duration: > 90 minutes/day Frequency: daily Ev/Orthodox: Yazidi Special ev needs: No Agree to transfusion: Yes Seatbelt use: always 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 Working smoke detector in home: Yes Carbon monox detector in home: Yes Firearms in home: Yes Firearms unloaded and locked: Yes Do you feel safe at home: Yes Do you feel safe in your relationship?: Yes Exam Const General: cooperative, healthy appearing and comfortable Orientation: alert, awake and oriented x3 HENMT Head: normal to inspection Eyes General: appearance normal, both eyes and all related structures Neck Neck: normal visual inspection, full ROM and no lymphadenopathy Resp Effort & Inspection: normal respiratory effort Auscultation: clear to auscultation bilaterally Cardio Rate: regular rate Rhythm: regular rhythm Heart Sounds: S1 normal and S2 normal GI Inspection: normal to inspection and non-distended Palpation: soft, no guarding and nontender Results Last Vital Signs Temp 98.8 F 08/14/25 03:20 Pulse 62 08/14/25 03:20 Resp 18 08/14/25 03:20 BP 129/76 08/14/25 03:20 Pulse Ox 98 08/14/25 03:20 Labs 08/14/25 06:00 08/14/25 06:00 Labs: Laboratory Results - last 24 hr 08/13/25 08/13/25 08/13/25 20:22 21:20 21:52 WBC 9.84 RBC 4.68 Hgb 13.9 Hct 41.2 MCV 88 MCH 29.7 MCHC 33.7 RDW 13.2 Plt Count 235 MPV 9.0 Immature Gran % 0.3 Neutrophils % 74.5 Lymphocytes % 14.5 Monocytes % 8.5 Eosinophils % 1.8 Basophils % 0.4 Nucleated RBC % 0.0 Absolute Neutrophils 7.32 H Absolute Lymphocytes 1.43 Absolute Monocytes 0.84 H Absolute Eosinophils 0.18 Absolute Basophils 0.04 PT INR VBG Lactate 0.8 Sodium 140 Potassium 3.8 Chloride 103 Carbon Dioxide 28.4 Anion Gap 8.6 BUN 13 Creatinine 1.0 Est GFR (CKD-EPI 2020) 78.98 Glucose 125 H Calcium 8.4 L Total Bilirubin 0.4 AST 15 ALT 19 Alkaline Phosphatase 124 H Troponin I 31 30 Total Protein 7.5 Albumin 3.2 L Lipase 987 H Urine Color Yellow Urine Clarity Clear Urine pH 7.0 Ur Specific [place] 1.010 Urine Protein Negative Urine Ketones Negative Urine Blood Negative Urine Nitrite Negative Urine Bilirubin Negative Urine Urobilinogen 0.2 Ur Leukocyte Esterase Negative Urine Glucose Negative COVID-19 Source SARS-CoV-2 (PCR) Influenza Type A (PCR) Influenza Type B (PCR) RSV (PCR) 08/13/25 08/13/25 22:15 23:58 WBC RBC Hgb Hct MCV MCH MCHC RDW Plt Count MPV Immature Gran % Neutrophils % Lymphocytes % Monocytes % Eosinophils % Basophils % Nucleated RBC % Absolute Neutrophils Absolute Lymphocytes Absolute Monocytes Absolute Eosinophils Absolute Basophils PT 10.6 INR 1.1 VBG Lactate Sodium Potassium Chloride Carbon Dioxide Anion Gap BUN Creatinine Est GFR (CKD-EPI 2020) Glucose Calcium Total Bilirubin AST ALT Alkaline Phosphatase Troponin I Total Protein Albumin Lipase Urine Color Urine Clarity Urine pH Ur Specific [place] Urine Protein Urine Ketones Urine Blood Urine Nitrite Urine Bilirubin Urine Urobilinogen Ur Leukocyte Esterase Urine Glucose COVID-19 Source Nasopharynx SARS-CoV-2 (PCR) Negative Influenza Type A (PCR) Negative Influenza Type B (PCR) Negative RSV (PCR) Negative
[2025-08-14] MEDS: Heparin 5,000 UNITS/ML VIAL 5000 UNITS SC ×3 (05:46→21:46)
[2025-08-14 06:50] LABS: HCT 41.1 % (40.0-50.0); HGB 13.7 g/dL (13.5-17.5); MCH 29.5 pg (27.0-33.0); MCHC 33.3 % (32.0-36.0); MCV 89 fL (80-95); MPV 9.7 fL (8.0-11.0); Platelet Count 208 10^3/uL (130-400); RBC 4.64 10^6/uL (4.36-5.78); RDW 13.2 % (11.8-14.1); RDW-SD 43.1 fL; WBC 7.08 10^3/uL (4.4-10.8)
[2025-08-14 07:39] LABS: ALT 15 U/L (16-63); AST 14 U/L (15-37); Albumin 2.8 g/dL (3.4-5.0); Alkaline Phosphatase 111 U/L (46-116); Anion Gap 9.2 mmol/L (3-11); BUN 9 mg/dL (7-18); Bilirubin, Total 0.7 mg/dL (0.2-1.0); CO2 24.8 mmol/L (21.0-32.0); Calcium 8.1 mg/dL (8.5-10.1); Chloride 107 mmol/L (98-107); Glucose 109 mg/dL (74-106); Magnesium 1.9 mg/dL (1.8-2.4); Potassium 3.7 mmol/L (3.5-5.1); Sodium 141 mmol/L (136-145); Total Protein 6.8 g/dL (6.4-8.2)
[2025-08-14 07:54] VITALS: BP 127/77; PULSE 67; RESP 17; TEMP 36.9; O2SAT 96
[2025-08-14 07:56] LABS: Lipase 406 U/L (<78)
--- NOTE | 2025-08-14 08:00 | DI.US_ITS ---
Exam(s) US ABDOMEN LIMITED EXAM: US ABDOMEN LIMITED CLINICAL HISTORY: Acute pancreatitis with cholelithiasis on CT TECHNIQUE: Ultrasound abdomen performed using standard protocol. COMPARISON: CT CT ABDOMEN PELVIS W from 08/13/2025 FINDINGS: There is no ascites evident. LIVER: There are no hepatic lesions evident nor dilatation of intrahepatic ducts. GALLBLADDER/BILIARY: There is a shadowing calculus in the gallbladder neck region. It measures approximately 1.7 cm. It appears somewhat mobile. Gallbladder wall does not appear thickened and there is no pericholecystic fluid. The common hepatic duct isnot dilated, measuring 2-3mm at the level of donte hepatis. PANCREAS: Appears slightly thickened. Left optic visualized due to overlying bowel gas. RIGHT KIDNEY:No evidence of solid mass, calculus, nor hydronephrosis. Tiny cortical cysts noted. IMPRESSION: 1. Cholelithiasis. There is a single 1.7 cm gallstone in the gallbladder neck region. However, the gallbladder does not appear edematous and there is no pericholecystic fluid. The CBD is not dilated. 2. Pancreas less than optimally visualized due to overlying bowel gas but does appear somewhat thickened. 3. There is no generalized ascites. DATA REPOSITORY:
[2025-08-14] MEDS: Normal Saline 1,000 ML 125 ML IV (08:02)
--- NOTE | 2025-08-14 08:04 | W.PM.PROGNOT ---
Date of Service Date of service: 08/14/25 Time of Service: 08:02 Assessment and Plan Assessment and plan (1) Pancreatitis, acute: Status: Acute Assessment and plan: Patient describes significant improvement since early this morning. He denies any nausea or vomiting. Awaiting AM labs to determine if MRCP is needed. Encouraged sitting in the chair and ambulation as tolerated. Will continue NPO status at this time. Continue with IV fluids, bowel rest and pain control Subjective Subjective Interval history since last seen: Konrad states he is feeling much better this morning. He states around 0500 his pain subsided and he was able to fall asleep. He denies any nausea or vomiting. Exam Const General: cooperative, healthy appearing and comfortable Orientation: alert and oriented x3 GI Inspection: normal to inspection and non-distended Palpation: soft, no guarding and tender (ina-umbilical, but not currently.) Objective Last Vital Signs Temp 36.9 C 08/14/25 07:54 Pulse 67 08/14/25 07:54 Resp 17 08/14/25 07:54 BP 127/77 08/14/25 07:54 Pulse Ox 96 08/14/25 07:54 Laboratory Results - last 24 hr 08/13/25 08/13/25 08/13/25 20:22 21:20 21:52 WBC 9.84 RBC 4.68 Hgb 13.9 Hct 41.2 MCV 88 MCH 29.7 MCHC 33.7 RDW 13.2 Plt Count 235 MPV 9.0 Immature Gran % 0.3 Neutrophils % 74.5 Lymphocytes % 14.5 Monocytes % 8.5 Eosinophils % 1.8 Basophils % 0.4 Nucleated RBC % 0.0 Absolute Neutrophils 7.32 H Absolute Lymphocytes 1.43 Absolute Monocytes 0.84 H Absolute Eosinophils 0.18 Absolute Basophils 0.04 PT INR VBG Lactate 0.8 Sodium 140 Potassium 3.8 Chloride 103 Carbon Dioxide 28.4 Anion Gap 8.6 BUN 13 Creatinine 1.0 Est GFR (CKD-EPI 2020) 78.98 Glucose 125 H Calcium 8.4 L Magnesium Total Bilirubin 0.4 AST 15 ALT 19 Alkaline Phosphatase 124 H Troponin I 31 30 Total Protein 7.5 Albumin 3.2 L Lipase 987 H Urine Color Yellow Urine Clarity Clear Urine pH 7.0 Ur Specific [place] 1.010 Urine Protein Negative Urine Ketones Negative Urine Blood Negative Urine Nitrite Negative Urine Bilirubin Negative Urine Urobilinogen 0.2 Ur Leukocyte Esterase Negative Urine Glucose Negative COVID-19 Source SARS-CoV-2 (PCR) Influenza Type A (PCR) Influenza Type B (PCR) RSV (PCR) 08/13/25 08/13/25 08/14/25 22:15 23:58 06:00 WBC 7.08 RBC 4.64 Hgb 13.7 Hct 41.1 MCV 89 MCH 29.5 MCHC 33.3 RDW 13.2 Plt Count 208 MPV 9.7 Immature Gran % Neutrophils % Lymphocytes % Monocytes % Eosinophils % Basophils % Nucleated RBC % Absolute Neutrophils Absolute Lymphocytes Absolute Monocytes Absolute Eosinophils Absolute Basophils PT 10.6 INR 1.1 VBG Lactate Sodium 141 Potassium 3.7 Chloride 107 Carbon Dioxide 24.8 Anion Gap 9.2 BUN 9 Creatinine 0.7 Est GFR (CKD-EPI 2020) 96.69 Glucose 109 H Calcium 8.1 L Magnesium 1.9 Total Bilirubin 0.7 AST 14 L ALT 15 L Alkaline Phosphatase 111 Troponin I Total Protein 6.8 Albumin 2.8 L Lipase 406 H Urine Color Urine Clarity Urine pH Ur Specific [place] Urine Protein Urine Ketones Urine Blood Urine Nitrite Urine Bilirubin Urine Urobilinogen Ur Leukocyte Esterase Urine Glucose COVID-19 Source Nasopharynx SARS-CoV-2 (PCR) Negative Influenza Type A (PCR) Negative Influenza Type B (PCR) Negative RSV (PCR) Negative PAWSS Have you Been Recently Intoxicated or Drunk Within the Last 30 days?: No Have you Ever Experienced Previous Episodes of Alcohol Withdrawal?: No Have you ever Experienced Withdrawal Seizures?: No Have you ever Experienced Delirium Tremens(DT)s?: No Have you ever undergone Alcohol Rehabilitation Treatment (i.e, inpt ot outpatient treatment programs)?: No Have you ever Experienced Blackouts?: No Have you ever Combined Alcohol with other Downers within the last 90 days?: No Have you ever Combined Alcohol with any other Substance of Abuse during the last 90 days?: No Positive Blood Alcohol level on Presentation? [PCS.BAL]: No Evidence of Increased Autonomic Activity (i.e. HR>120, tremor, sweating, agitation, nausea)?: No Result: 0 Time Spent with Patient Time Spent with Patient: <25 minutes Time was spent: obtaining and/or reviewing separately otained hiistory, indepentently interpreting results and counseling the patient
[2025-08-14] MEDS: Normal Saline Flush 10 ML SYR IVP ×4 (08:20→21:47)
--- NOTE | 2025-08-14 09:50 | PDOC.CMIN ---
Date of service: 08/14/25 Time of Service: 09:50 Care Management Initial Assmt Initial Assessment Reason for Hospitalization: pancreatitis Functional Status/Living Situation Patient Presentation: Konrad presented to the ER yesterday evening with c/o epigastric pain that was radiating to his back. He was found to have a pancreatic cyst which will likely be worked up as outpatient. He was found to have pancreatitits and cholelithiasis. The pain he was feeling is believed due to gallstones. [facility] was consulted. Konrad was ordered for a surgical consult, bowel rest and IV hydration. Konrad was sitting up in the bed, finishing some lunch, when CM met with him today. He was very pleasant, and very happy to be having something to eat. He would like to go home, but realizes that his providers want to make sure he is tolerating solid foods, and would like to continue to monitor his pain and lab work. Konrad is hopeful that he will go home early tomorrow morning. Town of Residence: [place] Resides with: Spouse (Maggie) Significant Other/Family: Local (sons Adam and Salomón and their families) Natural Supports: family Employment Status: Retired Instrumental Activities of Daily Living (ADLs): Independent Activities/Hobbies/SocialSupport: loves doing carpentry work - is currently helping his son build a home Medications Medication Management: No Issues/Barriers identified Advance Directives Advance Directives: Do you have an Advance Directive: N 09/12/15, 15:47 AD On File at [facility]: N 09/12/15, 15:47 Date Asked 08/13/25 08/13/25, 19:22 AD Date Reviewed COLST On File at [facility] COLST Date Scanned Code Status Resuscitation Status Full Code Insurance Coverage/Financial Issues Insurance: BC/BS [place] [facility] Advantage Care Team Visit Care Team Role Provider Type Ronnie Dominguez MD MD [facility] STAFF PHYSICIAN Bharat Li NP Primary Care Provider NURSE PRACTITIONER Jag Mosley MD Other Providers [facility] STAFF PHYSICIAN NIC Wang Emergency Provider PHYSICIANS ASSISTANT Kurt Esparza Admit Provider NON-[facility] STAFF PHYSICIAN Attending Provider Discharge Potential Discharge Needs: PCP F/U Appt and Surgical F/U Appt Anticipated Barriers to Discharge: None Identified Patient/Family Education Needs: Review discharge instructions, discuss Ask Me Three Transportation: Private vehicle Plan: Anticipate that Konrad will discharge home tomorrow with no new services. He will follow up with his PCP, and possibly with the surgeon, and continue per his plan of care. Konrad will transport home in a private vehicle. CM will continue to follow. Social Determinants of Health Screening Will the Patient Participate in the Screening?: Declined to provide Do you worry about having a steady place to live?: no In the past 12 months, have you had to go without electric, gas, oil or water in your home?: no Has lack of transportation kept you from medical appointments or from doing things needed for daily living?: no Has anyone in your life made you feel unsafe or unsupported?: no How hard is it for you to pay for the very basics like food, housing, medical care, and heating? Would you say it is:: Not hard at all How often do you feel lonely or isolated from those around you?: Never Do you speak a language other than Lebanese at home?: No Health Related Social Needs Health related social needs details: know more about his current health problems [facility] All Active Problems (Updated 08/13/25 @ 22:01 by Kurt Esparza) Cholelithiasis (Acute) Pancreatic cyst (Acute) Pancreatitis, acute (Acute) New patient screening performed (Acute) Nocturia (Acute) Hyperlipidemia (Acute) Prediabetes (Acute) Vaccine refused by parent (Acute) Varicose veins of lower extremity (Chronic) stable Chronic ankle pain (Acute 02/15/18) Medical History Exposure to second hand smoke Family History Mother , 89 Essential hypertension Stroke Cancer Father , 94 Heart disease Stroke Sister No problems noted. Sister No problems noted. Maternal Grandfather , 85 Pancreatic cancer Paternal Grandfather , 65 Heart disease Stroke Maternal Grandmother , 98 Stroke Heart disease Paternal Grandmother , 45 Cancer Maternal Uncle Prostate cancer Maternal Uncle Prostate cancer Son No problems noted. Son No problems noted. Social History Smoking/Tobacco Use Status: Former Tobacco Use Second Hand Exposure: Yes Smoking risk assessment performed?: Yes Alcohol Intake: current Alcohol Intake frequency: a few times a month Alcohol type: beer Drug use: Never Substance use type: does not use Counseling given: No Adopted: No Caregiver/Support person: No Foster care: No Household members: spouse Housing: house Communication Needs: None Education Level: college Do you need help understanding health information?: Rarely current occupation: Retired Pets and animals: Yes Pets and animals: cat(s), dog(s), horse(s) and farm animals Sexually active: Yes Do you think of yourself as: straight/heterosexual Current gender identity: male What is your relationship status?: How often do you talk on the phone with friends or family?: three or more times per week How often do you get together with friends or relatives?: three or more times per week How often do you attend nondenominational or jainism services?: 1-3 times per year Do you belong to any clubs or organized social groups?: no Panel score (0-1 are the most socially isolated patients): 2 What type of physical activity do you participate in: other Details: Building a house Duration: > 90 minutes/day Frequency: daily Ev/Latter-Day: Presybeterian Special ev needs: No Agree to transfusion: Yes Seatbelt use: always Drive intox or ride w/intox driver courier: No Working smoke detector in home: Yes Carbon monox detector in home: Yes Firearms in home: Yes Firearms unloaded and locked: Yes Do you feel safe at home: Yes Do you feel safe in your relationship?: Yes
--- NOTE | 2025-08-14 10:00 | DI.MRI_ITS ---
Exam(s) MR ABDOMEN WO EXAM: MR ABDOMEN WO CLINICAL HISTORY: Acute pancreatitis with cholelithiasis TECHNIQUE: Multiplanar multisequence MRI was performed on 1.5 brigette unit. MRCP also performed. COMPARISON: CT CT ABDOMEN PELVIS W from 08/13/2025 FINDINGS: VISUALIZED LUNG BASES: No pleural effusions evident. There is no ascites evident. LIVER: Normal size. There is diffuse signal drop on the of phase imaging compatible with steatosis. There are no discrete focal hepatic lesions evident. BILIARY/MRCP: There is a E large gallstone in the gallbladder neck region measuring 1.9 cm and there is also a smaller 6 mm gallstone at the junction of the neck and cystic duct. The gallbladder wall is not thickened or edematous and there is no pericholecystic fluid.The common bile duct is not dilated and there is no evidence of calculus nor mass within the CBD. PANCREAS: The uncinate process of the pancreas appears unremarkable as does most of the head. However, the entire neck, body, and tail the pancreas is abnormal with evidence of pancreatitis and dilatation of the pancreatic duct and side branches throughout the gland. There is peripancreatic fat streaking but no formed pseudocyst in the peripancreatic tissue. SPLEEN: Spleen is not enlarged and there are no intrasplenic lesions. ADRENALS: There are no significant adrenal masses. KIDNEYS: There are few small bilateral parapelvic cysts. No solid lesions. No hydronephrosis. Retroaortic left renal vein noted. ABDOMINAL AORTA: Not enlarged and there is no significant para-aortic adenopathy. ANTERIOR ABDOMINAL WALL/GI: There is no evidence of significant anterior abdominal wall hernia in the field of view of this study.No evidence of bowel obstruction. OSSEOUS: There are no lytic osseous lesions in the field of view of this study. IMPRESSION: 1. Cholelithiasis described above but no evidence of acute cholecystitis. The CBD is not dilated and there are no calculi within the nondilated CBD. 2. Acute pancreatitis which appears to be superimposed upon chronic pancreatitis sequelae. The pancreatic duct is dilated and there is dilatation of side branches throughout the gland. 3. Hepatic steatosis noted. There are no discrete focal hepatic lesions. Preliminary V rad report was reviewed. DATA REPOSITORY:
[2025-08-14 11:07] VITALS: BP 124/74; PULSE 61; RESP 17; TEMP 36.1; O2SAT 99
--- NOTE | 2025-08-14 11:18 | DI.RAD_ITS ---
Exam(s) XR ORBITS EXAM: XR ORBITS CLINICAL HISTORY: query metal / foreign body. TECHNIQUE: 2D digital imaging was performed. COMPARISON: No exams were available for comparison FINDINGS: Two views of the orbits No fractures. There are no radiopaque foreign bodies in the region of the orbits. IMPRESSION: No radiopaque foreign bodies evident in the region of the orbits. DATA REPOSITORY: RADIATION DOSE DELIVERED:
--- NOTE | 2025-08-14 11:37 | PHA.REVIEW2 ---
Pharmacy Admission Review Admission Clinical Review Admission Pharmacy Review: Cholelithiasis (Acute) Pancreatic cyst (Acute) Pancreatitis, acute (Acute) codeine Adverse Reaction (Intermediate, Verified 08/13/25 19:30) Dizziness/Lightheade Resuscitation Status Full Code Height 6 ft Weight 83.915 kg Pharmacy Admission Review Renal Dosing Renal Dosing: BUN 9 mg/dL (7-18) 08/14/25 06:00 Creatinine 0.7 mg/dL (0.70-1.30) 08/14/25 06:00 Medications needing adjustments: Reviewed (CrCl 76.92 mL/min) List of meds needing interventions: Current medications are okay Anticoagulation Anticoagulation: Hgb 13.7 g/dL (13.5-17.5) 08/14/25 06:00 Hct 41.1 % (40.0-50.0) 08/14/25 06:00 Plt Count 208 10^3/uL (130-400) 08/14/25 06:00 INR 1.1 (0.9-1.1) 08/13/25 23:58 Creatinine 0.7 mg/dL (0.70-1.30) 08/14/25 06:00 DVT Prophylaxis: Reviewed Medications: Heparin (q8h) Opiate Usage Evaluate Pain Scale/Pains Meds: Reviewed (morphine 4mg IVP q2h PRN - 4mg/24hrs) Scheduled Bowel Reg ordered if on Opiates?: No (PRN docusate/Miralax) Relevant Labs Relevant Labs: Sodium 141 mmol/L (136-145) 08/14/25 06:00 Potassium 3.7 mmol/L (3.5-5.1) 08/14/25 06:00 Chloride 107 mmol/L (98-107) 08/14/25 06:00 Magnesium 1.9 mg/dL (1.8-2.4) 08/14/25 06:00 Electrolytes, C-Reactive P, ESR: Reviewed Cardiac Review Cardiac Review: Troponin I 30 ng/L (<or=76) 08/13/25 21:20 BP, HR, EF%: Reviewed (BP and HR WNL) QTc Review QTc: Reviewed (430 from 08/13/25) IV to PO Switch IV Medications: Reviewed (morphine) Home Meds Home Med List reviewed: Reviewed Relevent Home Meds Not ordered & why?: No known home meds Current Meds Current Medication Order Review: Intervened Comments: Changed morphine order from 4mg/mL syringe (back order) to 2mg/mL syringe (in stock) and added 2nd PRN per pharmacy protocol
--- NOTE | 2025-08-14 13:30 | DI.VRAD_ITS ---
PROCEDURE INFORMATION: Exam: MR Abdomen Without Contrast Exam date and time: 08/14/2025 11:58 AM Age: 75 years old Clinical indication: Other: Pancreatitis; Additional info: Concern for cholecystitis TECHNIQUE: Imaging protocol: Magnetic resonance imaging of the abdomen without contrast. COMPARISON: CT ABDOMEN PELVIS W 08/13/2025 8:45 PM FINDINGS: Liver: Diffuse loss of signal on out of stage imaging compatible with steatosis. No mass. Gallbladder and biliary ducts: There is a large gallstone in the gallbladder neck. No gallbladder wall thickening or edema. No pericholecystic fluid. Common bile duct is normal in caliber. No filling defects in the common bile duct. Pancreas: There is pancreatic ductal dilatation. There is atrophy of the neck, body and tail. There is peripancreatic sweat. No fluid collection. Spleen: Unremarkable. No splenomegaly. Adrenal glands: Unremarkable. No mass. Kidneys: Unremarkable. No solid mass. No hydronephrosis. Stomach and bowel: Visualized stomach and intestines are unremarkable. Intraperitoneal space: No free fluid. Vasculature: No abdominal aortic aneurysm. Lymph nodes: No enlarged nodes. Bones/joints: Unremarkable. No suspicious lesions. Soft tissues: Unremarkable. IMPRESSION: 1. Gallstone in the gallbladder neck. No gallbladder wall thickening/edema. No pericholecystic fluid. Normal caliber common bile duct. 2. Acute on chronic pancreatitis. 3. Hepatic steatosis. Dictated and Authenticated by: Jhonny Burrell MD. Orderin Vilma Hicks MD
--- NOTE | 2025-08-14 15:07 | PGE_ITS ---
Date of Service Date of service: 08/14/25 Time of Service: 08:00 Assessment and Plan Assessment and plan (1) Pancreatitis, acute: Start date: 08/13/25 Status: Acute Assessment and plan: Appreciate general surgery evaluation. Patient has acute gallstone pancreatitis. MRCP completed. Patient declines to have surgery while hospitalized Diet advanced Recheck morning lipase Likely discharge Aug 15Wed (2) Pancreatic cyst: Start date: 08/13/25 Status: Acute Assessment and plan: Incidental finding on imaging Per [facility], no acute workup (3) Cholelithiasis: Start date: 08/13/25 Status: Acute Assessment and plan: Outpatient followup for planned cholecystectomy Subjective Subjective Interval history since last seen: Mr. Bender is comfortable in bed, no new complaints. Exam Narrative Exam Narrative: General: This is a pleasant man in no distress HEENT: Normocephalic, atraumatic CV: RRR Resp: CTAB Abd: soft, nondistended. Epigastric pain with palpation. No guarding nor rebound. MSK: voluntary motion x4 Neuro: awake, alert, no focal deficits Objective Last Vital Signs Temp 36.1 C L 08/14/25 11:07 Pulse 61 08/14/25 11:07 Resp 17 08/14/25 11:07 BP 124/74 08/14/25 11:07 Pulse Ox 99 08/14/25 11:07 Laboratory Results - last 24 hr 08/13/25 08/13/25 08/13/25 20:22 21:20 21:52 WBC 9.84 RBC 4.68 Hgb 13.9 Hct 41.2 MCV 88 MCH 29.7 MCHC 33.7 RDW 13.2 Plt Count 235 MPV 9.0 Immature Gran % 0.3 Neutrophils % 74.5 Lymphocytes % 14.5 Monocytes % 8.5 Eosinophils % 1.8 Basophils % 0.4 Nucleated RBC % 0.0 Absolute Neutrophils 7.32 H Absolute Lymphocytes 1.43 Absolute Monocytes 0.84 H Absolute Eosinophils 0.18 Absolute Basophils 0.04 PT INR VBG Lactate 0.8 Sodium 140 Potassium 3.8 Chloride 103 Carbon Dioxide 28.4 Anion Gap 8.6 BUN 13 Creatinine 1.0 Est GFR (CKD-EPI 2020) 78.98 Glucose 125 H Calcium 8.4 L Magnesium Total Bilirubin 0.4 AST 15 ALT 19 Alkaline Phosphatase 124 H Troponin I 31 30 Total Protein 7.5 Albumin 3.2 L Lipase 987 H Urine Color Yellow Urine Clarity Clear Urine pH 7.0 Ur Specific [place] 1.010 Urine Protein Negative Urine Ketones Negative Urine Blood Negative Urine Nitrite Negative Urine Bilirubin Negative Urine Urobilinogen 0.2 Ur Leukocyte Esterase Negative Urine Glucose Negative COVID-19 Source SARS-CoV-2 (PCR) Influenza Type A (PCR) Influenza Type B (PCR) RSV (PCR) 08/13/25 08/13/25 08/14/25 22:15 23:58 06:00 WBC 7.08 RBC 4.64 Hgb 13.7 Hct 41.1 MCV 89 MCH 29.5 MCHC 33.3 RDW 13.2 Plt Count 208 MPV 9.7 Immature Gran % Neutrophils % Lymphocytes % Monocytes % Eosinophils % Basophils % Nucleated RBC % Absolute Neutrophils Absolute Lymphocytes Absolute Monocytes Absolute Eosinophils Absolute Basophils PT 10.6 INR 1.1 VBG Lactate Sodium 141 Potassium 3.7 Chloride 107 Carbon Dioxide 24.8 Anion Gap 9.2 BUN 9 Creatinine 0.7 Est GFR (CKD-EPI 2020) 96.69 Glucose 109 H Calcium 8.1 L Magnesium 1.9 Total Bilirubin 0.7 AST 14 L ALT 15 L Alkaline Phosphatase 111 Troponin I Total Protein 6.8 Albumin 2.8 L Lipase 406 H Urine Color Urine Clarity Urine pH Ur Specific [place] Urine Protein Urine Ketones Urine Blood Urine Nitrite Urine Bilirubin Urine Urobilinogen Ur Leukocyte Esterase Urine Glucose COVID-19 Source Nasopharynx SARS-CoV-2 (PCR) Negative Influenza Type A (PCR) Negative Influenza Type B (PCR) Negative RSV (PCR) Negative PAWSS Have you Been Recently Intoxicated or Drunk Within the Last 30 days?: No Have you Ever Experienced Previous Episodes of Alcohol Withdrawal?: No Have you ever Experienced Withdrawal Seizures?: No Have you ever Experienced Delirium Tremens(DT)s?: No Have you ever undergone Alcohol Rehabilitation Treatment (i.e, inpt ot outpatient treatment programs)?: No Have you ever Experienced Blackouts?: No Have you ever Combined Alcohol with other Downers within the last 90 days?: No Have you ever Combined Alcohol with any other Substance of Abuse during the last 90 days?: No Positive Blood Alcohol level on Presentation? [PCS.BAL]: No Evidence of Increased Autonomic Activity (i.e. HR>120, tremor, sweating, agitation, nausea)?: No Result: 0 Time Spent with Patient Time Spent with Patient: 25-34 minutes Time was spent: preparing to see the patient(eg.review tests), obtaining and/or reviewing separately otained hiistory, ordering medications,tests, procedures, referring, communicating with other health nurse healthcare manager, indepentently interpreting results, counseling the patient and care coordination
[2025-08-14 15:21] VITALS: BP 133/74; PULSE 75; RESP 17; TEMP 36.7; O2SAT 98
[2025-08-14 19:17] VITALS: BP 123/72; PULSE 78; RESP 18; TEMP 37.3; O2SAT 99
[2025-08-14 23:16] VITALS: BP 111/66; PULSE 89; RESP 18; TEMP 37.2; O2SAT 95
[2025-08-15 03:22] VITALS: BP 105/65; PULSE 71; RESP 18; TEMP 36.8; O2SAT 95
[2025-08-15 05:30] LABS: HCT 41.1 % (40.0-50.0); HGB 13.9 g/dL (13.5-17.5); MCH 29.6 pg (27.0-33.0); MCHC 33.8 % (32.0-36.0); MCV 88 fL (80-95); MPV 9.6 fL (8.0-11.0); Platelet Count 219 10^3/uL (130-400); RBC 4.69 10^6/uL (4.36-5.78); RDW 13.2 % (11.8-14.1); RDW-SD 42.3 fL; WBC 7.34 10^3/uL (4.4-10.8)
[2025-08-15 05:45] LABS: Magnesium 1.8 mg/dL (1.6-2.6)
[2025-08-15 05:48] LABS: ALT 18 U/L (10-49); AST 24 U/L (<34); Albumin 3.7 g/dL (3.4-5.0); Alkaline Phosphatase 122 U/L (46-116); Anion Gap 8.7 mmol/L (3-11); BUN 12 mg/dL (9-23); Bilirubin, Total 0.70 mg/dL (0.2-1.2); CO2 24.3 mmol/L (20.0-31.0); Calcium 8.5 mg/dL (8.3-10.6); Chloride 108 mmol/L (98-107); Glucose 115 mg/dL (74-106); Potassium 3.9 mmol/L (3.5-5.1); Sodium 141 mmol/L (136-145); Total Protein 6.8 g/dL (5.7-8.2)
[2025-08-15 05:59] LABS: Lipase 145 U/L (<53)
[2025-08-15] MEDS: Heparin 5,000 UNITS/ML VIAL 5000 UNITS SC (06:44)
[2025-08-15 07:11] VITALS: BP 112/82; PULSE 94; RESP 16; TEMP 37.2; O2SAT 95
[2025-08-15] MEDS: Normal Saline Flush 10 ML SYR IVP (08:02)
--- NOTE | 2025-08-15 10:05 | DSE_ITS ---
Date of service: 08/15/25 Time of Service: 08:00 DS: Diagnosis Discharge Diagnosis (1) Pancreatitis, acute: Status: Resolved Asessment and Plan: Clifford Bender is a 75 year old man presenting August 13 with abdominal pain. He was admitted for diagnostic workup and pain control, and was evaluated by general surgery. He has been offered outpatient surgical consultation for cholecystectomy. Overnight his labs and pain have improved and at this time he is safe to return home with general surgery followup. (2) Pancreatic cyst: Status: Ruled-out Asessment and Plan: Over-read of abdomen imaging not suggestive of pancreatic cyst (3) Cholelithiasis: Status: Acute Asessment and Plan: 1.7 cm gallstone noted on imaging. Intervention deferred as above. Discharge Plan Disposition Patient Disposition: Home Condition: Improving Discharge Details Reason For Visit: Acute Pancreatitis Admit Date/Time: 08/13/25 22:11 Admit Provider: Kurt Esparza Attending Provider: Kurt Esparza Primary Care Provider: Bharat Starks Hospital Course Hospital Course: Clifford Bender is a 75 year old man presenting August 13 with abdominal pain. He was admitted for diagnostic workup and pain control, and was evaluated by general surgery. He has been offered outpatient surgical consultation for cholecystectomy. Overnight his labs and pain have improved and at this time he is safe to return home with general surgery followup. Home Meds and New Rx's Prescriptions: No Action No Known Home Meds Discharge Instructions Instructions: Gallstones (DC) Stand Alone Forms: Portal Information Referrals: Melissa Giron MD [ [facility] STAFF PHYSICIAN, Surgery] - 08/27/25 9:30 am Jag Mosley MD [ [facility] STAFF PHYSICIAN, Surgery] Activity:: Activity as Tolerated Equipment/Supplies:: No Equipment Needed Diet:: As Tolerated Discharge Orders Discharge Orders: Discharge Order (Routine); Ordered 08/15/25 Ordered By: Ronnie Dominguez Discharge Data Discharge Date/Time-TO BE ENTERED AT DEPARTURE: 08/15/25 10:59 DS: Summary Time Spent with Patient providing and/or coordinating discharge services: Less than 30 minutes Status at Discharge Functional status at discharge: independent ambulation Overall status at discharge: patient is back to baseline Mental Status: mental status grossly normal Speech and Movement: speech and movement normal Mood: congruent mood Affect: normal affect Quality:SDOH Health Related Social Needs: Health related social needs education Health related social needs details know more about hi s current health problems Health related social needs details: know more about his current health problems Exam Narrative Exam Narrative: General: This is a pleasant man in no distress HEENT: Normocephalic, atraumatic CV: RRR Resp: CTAB Abd: soft, nondistended. Epigastric pain with palpation. No guarding nor rebound. MSK: voluntary motion x4 Neuro: awake, alert, no focal deficits Psych Mental Status: mental status grossly normal Speech and Movement: speech and movement normal Mood: congruent mood Affect: normal affect DS: Data Vitals/I&O Vitals and I&O: Vital Signs Temperature 37.2 C 08/15/25 07:11 Temperature Source Temporal Artery Scan 08/15/25 07:11 Pulse 94 H 08/15/25 07:11 Pulse Rhythm Regular 08/13/25 23:09 Respiratory Rate 16 08/15/25 07:11 Respiratory Effort Normal 08/13/25 23:09 Respiratory Depth Normal 08/13/25 23:09 Respiratory Pattern Normal 08/13/25 23:09 Blood Pressure 112/82 08/15/25 07:11 Blood Pressure Mean 92 08/15/25 07:11 Blood Pressure Position Sitting 08/13/25 19:31 Pulse Oximetry 95 08/15/25 07:11 Oxygen Delivery Method Room Air 08/15/25 08:09 Oxygen Flow Rate 0 08/15/25 08:09 Pain Level 0 08/15/25 07:11 Intake & Output 08/14/25 08/14/25 08/15/25 11:59 23:59 11:59 Intake Total 1097.917 / 1097.917 240 / 240 Balance 1097.917 / 1097.917 240 / 240 Weight 81.1 kg Intake: IV 1097.917 / 1097.917 Oral 240 / 240 Other: Urine Color Yellow Yellow Urine Appearance Clear Clear Comment pt voids to toilet independent. pt voids to toilet independent. Stool Size Moderate Stool Characteristics Formed Data Completed and Pending Pending Labs at Discharge: 08/13/25 08/13/25 08/13/25 20:22 21:20 21:52 WBC 9.84 RBC 4.68 Hgb 13.9 Hct 41.2 MCV 88 MCH 29.7 MCHC 33.7 RDW 13.2 Plt Count 235 MPV 9.0 Immature Gran % 0.3 Neutrophils % 74.5 Lymphocytes % 14.5 Monocytes % 8.5 Eosinophils % 1.8 Basophils % 0.4 Nucleated RBC % 0.0 Absolute Neutrophils 7.32 H Absolute Lymphocytes 1.43 Absolute Monocytes 0.84 H Absolute Eosinophils 0.18 Absolute Basophils 0.04 PT INR VBG Lactate 0.8 Sodium 140 Potassium 3.8 Chloride 103 Carbon Dioxide 28.4 Anion Gap 8.6 BUN 13 Creatinine 1.0 Est GFR (CKD-EPI 2020) 78.98 Glucose 125 H Calcium 8.4 L Magnesium Total Bilirubin 0.4 AST 15 ALT 19 Alkaline Phosphatase 124 H Troponin I 31 30 Total Protein 7.5 Albumin 3.2 L Lipase 987 H Urine Color Yellow Urine Clarity Clear Urine pH 7.0 Ur Specific [place] 1.010 Urine Protein Negative Urine Ketones Negative Urine Blood Negative Urine Nitrite Negative Urine Bilirubin Negative Urine Urobilinogen 0.2 Ur Leukocyte Esterase Negative Urine Glucose Negative COVID-19 Source SARS-CoV-2 (PCR) Influenza Type A (PCR) Influenza Type B (PCR) RSV (PCR) 08/13/25 08/13/25 08/14/25 22:15 23:58 06:00 WBC 7.08 RBC 4.64 Hgb 13.7 Hct 41.1 MCV 89 MCH 29.5 MCHC 33.3 RDW 13.2 Plt Count 208 MPV 9.7 Immature Gran % Neutrophils % Lymphocytes % Monocytes % Eosinophils % Basophils % Nucleated RBC % Absolute Neutrophils Absolute Lymphocytes Absolute Monocytes Absolute Eosinophils Absolute Basophils PT 10.6 INR 1.1 VBG Lactate Sodium 141 Potassium 3.7 Chloride 107 Carbon Dioxide 24.8 Anion Gap 9.2 BUN 9 Creatinine 0.7 Est GFR (CKD-EPI 2020) 96.69 Glucose 109 H Calcium 8.1 L Magnesium 1.9 Total Bilirubin 0.7 AST 14 L ALT 15 L Alkaline Phosphatase 111 Troponin I Total Protein 6.8 Albumin 2.8 L Lipase 406 H Urine Color Urine Clarity Urine pH Ur Specific [place] Urine Protein Urine Ketones Urine Blood Urine Nitrite Urine Bilirubin Urine Urobilinogen Ur Leukocyte Esterase Urine Glucose COVID-19 Source Nasopharynx SARS-CoV-2 (PCR) Negative Influenza Type A (PCR) Negative Influenza Type B (PCR) Negative RSV (PCR) Negative 08/15/25 05:08 WBC 7.34 RBC 4.69 Hgb 13.9 Hct 41.1 MCV 88 MCH 29.6 MCHC 33.8 RDW 13.2 Plt Count 219 MPV 9.6 Immature Gran % Neutrophils % Lymphocytes % Monocytes % Eosinophils % Basophils % Nucleated RBC % Absolute Neutrophils Absolute Lymphocytes Absolute Monocytes Absolute Eosinophils Absolute Basophils PT INR VBG Lactate Sodium 141 Potassium 3.9 Chloride 108 H Carbon Dioxide 24.3 Anion Gap 8.7 BUN 12 Creatinine 0.8 Est GFR (CKD-EPI 2020) 95.85 Glucose 115 H Calcium 8.5 Magnesium 1.8 Total Bilirubin 0.70 AST 24 ALT 18 Alkaline Phosphatase 122 H Troponin I Total Protein 6.8 Albumin 3.7 Lipase 145 H Urine Color Urine Clarity Urine pH Ur Specific [place] Urine Protein Urine Ketones Urine Blood Urine Nitrite Urine Bilirubin Urine Urobilinogen Ur Leukocyte Esterase Urine Glucose COVID-19 Source SARS-CoV-2 (PCR) Influenza Type A (PCR) Influenza Type B (PCR) RSV (PCR) PFSH All Active Problems (Updated 08/18/25 @ 21:18 by Ronnie Dominguez MD) Cholelithiasis (Acute) New patient screening performed (Acute) Nocturia (Acute) Hyperlipidemia (Acute) Prediabetes (Acute) Vaccine refused by parent (Acute) Varicose veins of lower extremity (Chronic) stable Chronic ankle pain (Acute 02/15/18) Medical History Exposure to second hand smoke Family History Mother , 89 Essential hypertension Stroke Cancer Father , 94 Heart disease Stroke Sister No problems noted. Sister No problems noted. Maternal Grandfather , 85 Pancreatic cancer Paternal Grandfather , 65 Heart disease Stroke Maternal Grandmother , 98 Stroke Heart disease Paternal Grandmother , 45 Cancer Maternal Uncle Prostate cancer Maternal Uncle Prostate cancer Son No problems noted. Son No problems noted. Social History Smoking/Tobacco Use Status: Former Tobacco Use Second Hand Exposure: Yes Smoking risk assessment performed?: Yes Alcohol Intake: current Alcohol Intake frequency: a few times a month Alcohol type: beer Drug use: Never Substance use type: does not use Counseling given: No Adopted: No Caregiver/Support person: No Foster care: No Household members: spouse Housing: house Communication Needs: None Education Level: college Do you need help understanding health information?: Rarely current occupation: Retired Pets and animals: Yes Pets and animals: cat(s), dog(s), horse(s) and farm animals Sexually active: Yes Do you think of yourself as: straight/heterosexual Current gender identity: male What is your relationship status?: How often do you talk on the phone with friends or family?: three or more times per week How often do you get together with friends or relatives?: three or more times per week How often do you attend yazdanism or alevism services?: 1-3 times per year Do you belong to any clubs or organized social groups?: no Panel score (0-1 are the most socially isolated patients): 2 What type of physical activity do you participate in: other Details: Building a house Duration: > 90 minutes/day Frequency: daily Ev/Sabianism: Sabianist Special ev needs: No Agree to transfusion: Yes Seatbelt use: always Drive intox or ride w/intox 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
--- NOTE | 2025-08-15 13:35 | CMDISCH_ITS ---
Date of service: 08/15/25 Time of Service: 13:35 LACE Index Scoring Tool Questions: Length of Stay (in days): 1 Was the patient admitted via the E.D.?: Yes E.D. Visits: 1 Answers: Total Score: 5 Risk of Readmission: Low Risk Care Management Discharge Plan Reason for Hospitalization: pancreatitis Discharge Plan: Konrad was discharged home today with no new services. He will f/u with the surgeon on 08/27 and will also f/u with his PCP. Konrad was driven home in a private vehicle. Patient/Family Education Needs: Review of discharge instructions, activity, limitations and discuss Ask me 3. SDOH Health Related Social Needs: Health related social needs education Health related social needs details know more about hi s current health problems Health related social needs details: know more about his current health problems
== END 2025-08-15 10:59 | disposition home or self-care (01) | DRG 439 ==
LOC: ER 21:14 → MS 23:03
PROVIDERS: Surgery; Admitting Provider Family Medicine; Emergency Provider Physician Assistant; PCP Nurse Practitioner Family; Responsible Provider Family Medicine; Visit Provider Family Medicine
DX: K85.10 Biliary acute pancreatitis without necrosis or infection (principal); K86.2 Cyst of pancreas; K80.20 Calculus of gallbladder without cholecystitis without obstruction; R73.03 Prediabetes; E78.5 Hyperlipidemia, unspecified; R35.1 Nocturia
CPT/HCPCS: 00123; 36415; 80053; 83690; 85027; 87637; 93005; 96365; 96375; 99223; 99285; 70200; 74177; 74181; 76705; 81003; 83605; 83735; 84484; 85025; 85610; 93010; 99232; 99238; J0131; J1644; J2270; J3490

== ENCOUNTER → 2025-08-27 09:21 | Outpatient (BNVA) | payer MEDICARE, SELFPAY | PROVIDERS: PCP Nurse Practitioner Family; Referring Provider Nurse Practitioner Family; Visit Provider Student in an Organized Health Care Education/Training Program | DX: K85.10 Biliary acute pancreatitis without necrosis or infection (principal) | CPT/HCPCS: 99213 ==